=== PATIENT | female | born 1995 | race American Indian/Alaskan Native ===

== ENCOUNTER 2020-03-19 23:43 | Emergency (ER) | payer OTHER, MEDICAID ==
[2020-03-20 00:22] VITALS: BP 140/101; PULSE 125
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
== END 2020-03-20 01:55 | disposition home or self-care (01) ==
LOC: DL.ED 23:43
DX: S40.011A Contusion of right shoulder, initial encounter (principal); S40.012A Contusion of left shoulder, initial encounter; S90.30XA Contusion of unspecified foot, initial encounter; F31.9 Bipolar disorder, unspecified; F41.9 Anxiety disorder, unspecified; F17.210 Nicotine dependence, cigarettes, uncomplicated; I10 Essential (primary) hypertension; N39.0 Urinary tract infection, site not specified; Z79.899 Other long term (current) drug therapy; Y04.0XXA Assault by unarmed brawl or fight, initial encounter
CPT/HCPCS: 73020-LT; 73620-LT; 73620-RT; 80305-QW; 81001; 81025; 87086; 87088; 87186; 99283; 99284-25

== ENCOUNTER 2024-10-21 18:55 | Emergency (ER) | payer MEDICAID ==
[2024-10-21 19:56] VITALS: BP 132/81; PULSE 70
== END 2024-10-21 19:49 | disposition home or self-care (01) ==
LOC: DL.ED 18:55
DX: S56.412A Strain of extensor muscle, fascia and tendon of left index finger at forearm level, initial encounter (principal); I10 Essential (primary) hypertension; Z79.899 Other long term (current) drug therapy; Y04.0XXA Assault by unarmed brawl or fight, initial encounter; Y93.89 Activity, other specified
CPT/HCPCS: 73130-LT; 99284